=== PATIENT | male | born 1970 | race Caucasian/White ===

== ENCOUNTER 2019-04-14 16:08 | Outpatient (CLI) | payer BC | END 2019-04-14 16:09 | disposition home or self-care (01) | LOC: CTENTCT 16:08 | PROVIDERS: ATTEND Otolaryngology Plastic Surgery within the Head & Neck | DX: J32.9 Chronic sinusitis, unspecified (principal) | CPT/HCPCS: 70486 ==

== ENCOUNTER 2020-02-01 21:01 | Emergency (ER) | payer BC ==
[2020-02-01 21:36] LABS: #Basophils 0.1 thou/uL (0.0-0.2); #Eosinphils 0.1 thou/uL (0.0-0.7); #Lymphocytes 1.5 thou/uL (1.20-3.40); #Monocytes 0.6 thou/uL (0.11-0.59); #Neutrophils 4.6 thou/uL (1.40-6.50); %Eosinophils 1.3 % (0.0-10.0); %Lymphocytes 21.5 % (21.0-51.0); %Monocytes 8.3 % (0.0-10.0); %Neutrophils 67.9 % (42.0-75.0); Hemoglobin 16.2 g/dL (14.0-18.0); Mean Corpuscular HGB CONC 34.3 g/dL (32.0-36.0); Mean Corpuscular Hemoglobin 33.3 pg (27.0-31.0); Mean Corpuscular Volume 97.1 fL (78.0-98.0); Mean Platelet Volume 7.6 fL (7.4-10.4); Platelet Count 299 thou/uL (130-400); Red Blood Cell (RBC) Count 4.88 mill/uL (4.70-6.10); White Blood Cell (WBC) Count 6.8 thou/uL (4.8-10.8)
[2020-02-01 21:58] LABS: ALT (SGPT) 39 U/L (8-55); AST (SGOT) 31 U/L (5-34); Albumin 4.5 g/dL (3.5-5.0); Alkaline Phosphatase 100 U/L (40-110); Anion Gap 14 mmol/L (10-20); BUN (Urea Nitrogen) 9 mg/dL (8.9-20.6); Bilirubin, Total 1.1 mg/dL (0.2-1.2); Calc. Creatinine Clearance 0 mL/min (70-130); Calcium 9.6 mg/dL (7.8-10.44); Carbon Dioxide 20 mmol/L (22-29); Chloride 102 mmol/L (98-107); Estimated GFR-MDRD Greater than 90; Globulin 3.3 g/dL (2.4-3.5); Glucose 135 mg/dL (70-105); Potassium 3.6 mmol/L (3.5-5.1); Protein, Total 7.8 g/dL (6.0-8.3); Sodium 132 mmol/L (136-145)
--- NOTE | 2020-02-01 23:19 | RAD ---
EXAM: CHEST ONE VIEW HISTORY: Chest pain. COMPARISON: None FINDINGS: The cardiac silhouette and pulmonary vasculature is within normal limits. The lungs are clear. The os seous structures are intact. IMPRESSION: No acute cardiopulmonary process.
[2020-02-01] MEDS ORDERED: Lorazepam 2 MG/ML VIAL ONE (23:36)
[2020-02-01] MEDS ORDERED: Ketorolac Tromethamine 30 MG/ML VIAL ONE (23:36)
== END 2020-02-01 23:57 | disposition home or self-care (01) ==
LOC: ERS 21:01
DX: R07.89 Other chest pain (principal); R51 Headache; R53.83 Other fatigue; F41.9 Anxiety disorder, unspecified; F32.9 Major depressive disorder, single episode, unspecified; Z87.891 Personal history of nicotine dependence; Z79.899 Other long term (current) drug therapy
CPT/HCPCS: 36415; 71045; 80053; 82550; 84484; 85025; 93005; 96361; 96374; 96375; J1885; J2060

== ENCOUNTER 2022-11-19 14:00 | Inpatient (IN) | payer BC ==
[2022-11-19 17:16] LABS: Hemoglobin 14.9 g/dL (13.5-17.5); Mean Corpuscular HGB CONC 34.2 g/dL (32.0-36.0); Mean Corpuscular Hemoglobin 32.1 pg (27.0-33.0); Mean Platelet Volume 10.5 fl (7.4-10.4); Platelet Count 284 10x3/uL (150-450); RBC Distribution Width 12.8 % (11.5-14.5); Red Blood Cell (RBC) Count 4.64 10x6/uL (4.32-5.72); White Blood Cell (WBC) Count 8.6 10x3/uL (3.5-10.5)
[2022-11-19 17:38] LABS: Anion Gap 17 mmol/L (10-20); BUN (Urea Nitrogen) 11 mg/dL (8.9-20.6); Calc. Creatinine Clearance 0 mL/min (70-130); Calcium 9.6 mg/dL (7.8-10.44); Carbon Dioxide 23 mmol/L (22-29); Chloride 103 mmol/L (98-107); Estimated GFR 108; Glucose 70 mg/dL (70-105); Potassium 4.1 mmol/L (3.5-5.1); Sodium 139 mmol/L (136-145)
[2022-11-20] MEDS ORDERED: Fentanyl 250 MCG/5 ML VIAL ONE (06:20)
[2022-11-20] MEDS ORDERED: Midazolam HCl 2 mg/2 ml Vial ONE ×2 (06:20→06:49)
[2022-11-20] MEDS ORDERED: Albumin 5% 500 ML ONE (06:34)
[2022-11-20] MEDS ORDERED: PHENYLEPHRINE-NS 100 MCG/ML 10 ML SYRINGE ONE ×2 (06:34→07:37)
[2022-11-20] MEDS ORDERED: Lidocaine 1% MPF 2 ML VIAL ONE (06:45)
[2022-11-20] MEDS ORDERED: Heparin 10,000 UNITS/1 ML VIAL 30,000 UNITS in Sodium Chloride 0.9% 1,000 ML FS SCH (07:00)
[2022-11-20] MEDS ORDERED: CEFAZOLIN 2 GM VIAL ONE (07:25)
[2022-11-20] MEDS ORDERED: Sodium Chloride 0.9% 100 ML ONE (07:25)
[2022-11-20] MEDS ORDERED: Papaverine 60 MG/2 ML VIAL ONE (07:37)
[2022-11-20] MEDS ORDERED: Heparin 30,000 units/30 ml VIAL ONE (07:37)
[2022-11-20] MEDS ORDERED: Aminocaproic Acid 5 GM/20 ML VIAL ONE (07:37)
[2022-11-20] MEDS ORDERED: Vecuronium 10 MG VIAL ONE (07:37)
[2022-11-20] MEDS ORDERED: Heparin 5,000 UNITS/ML VIAL ONE (07:37)
[2022-11-20] MEDS ORDERED: Labetalol HCl 100 MG/20 ML VIAL ONE (07:37)
[2022-11-20] MEDS ORDERED: Vancomycin 1 GM VIAL ONE (07:37)
[2022-11-20] MEDS ORDERED: PROPOFOL 200 MG/20 ML VIAL ONE (07:37)
[2022-11-20] MEDS ORDERED: Protamine Sulfate 250 MG/25 ML VIAL ONE (07:37)
[2022-11-20] MEDS ORDERED: Calcium Chloride 1 GM/10 ML Abboject SYRINGE ONE (07:37)
[2022-11-20] MEDS ORDERED: Thrombin 5000 UNITS/5 ML VIAL ONE (07:37)
[2022-11-20] MEDS ORDERED: Bisacodyl 5 MG TAB PO PRN (10:08)
[2022-11-20] MEDS ORDERED: Post-Op Insulin Drip Protocol IVPB ONE (10:08)
[2022-11-20] MEDS ORDERED: Hetastarch 6% 500 ML 500 ML IVPB PRN (10:08)
[2022-11-20] MEDS ORDERED: DOPamine 400 MG/D5W 250 ML 250 ML IVPB PRN (10:08)
[2022-11-20] MEDS ORDERED: Potassium Chloride 20 MEQ/100 ML PREMIX BAG IVPB PRN (10:08)
[2022-11-20] MEDS ORDERED: hydrALAZINE 20 MG/ML VIAL SLOW IVP PRN (10:08)
[2022-11-20] MEDS ORDERED: Bisacodyl 10 MG SUPP PR PRN (10:08)
[2022-11-20] MEDS ORDERED: Ipratropium/Albuterol 3 ML NEB NEB PRN (10:08)
[2022-11-20] MEDS ORDERED: fentaNYL 50 mcg/mL 1 mL Vial SLOW IVP PRN (10:08)
[2022-11-20] MEDS ORDERED: Guaifenesin DM 100-10/5 ML UDCUP PO PRN (10:08)
[2022-11-20] MEDS ORDERED: NOREPINEPHRINE 8 MG/250 ML-D5W 250 ML IVPB PRN (10:08)
[2022-11-20] MEDS ORDERED: niCARdipine 25 MG in Sodium Chloride 0.9% 250 ML 250 ML IVPB PRN (10:08)
[2022-11-20] MEDS ORDERED: Promethazine HCl 25 MG/ML VIAL IM PRN (10:08)
[2022-11-20] MEDS ORDERED: Mag-Al 1200 mg/1200 mg/30 ML UDCUP PO PRN (10:08)
[2022-11-20] MEDS ORDERED: Nitroglycerin 50 MG/250 ML BOT 250 ML IVPB PRN (10:08)
[2022-11-20] MEDS ORDERED: Acetaminophen 325 MG TAB PO PRN (10:08)
[2022-11-20] MEDS ORDERED: Ondansetron PF 4 MG/2 ML Vial IVP PRN (10:08)
[2022-11-20] MEDS ORDERED: Morphine 4 MG/ML VIAL ONE ×2 (10:17→19:22)
[2022-11-20 10:27] LABS: Actual Bicarbonate (HCO3a) 19.4 mEq/L (22-28); Base Excess (BEa) -4.4 mEq/L (-2.0 to +3.0); Calcium, Ionized (arterial) 1.11 mmol/L (1.12-1.30); Carboxyhemoglobin (COHb) 1.2 gm% (0.0-3.0); Hematocrit-ABG 39 % (42.0-52.0); Hemoglobin (Hb) 13.4 g/dL (14.0-18.0); O2 Tension (PaO2), arterial 168.6 mmHg (80.0-100.0); Potassium - ABG Lab 3.77 mmol/L (3.70-5.30)
[2022-11-20 10:28] LABS: Puncture Site Arterial Line
[2022-11-20] MEDS: Lactated Ringer's 1,000 ML IV SCH ×2 (10:39→23:47)
[2022-11-20 10:40] LABS: #Eosinphils 0.1 thou/uL (0.0-0.7); #Monocytes 0.8 thou/uL (0.11-0.59); #Neutrophils 9.2 thou/uL (1.40-6.50); %Basophils 0.3 % (0.0-1.0); %Eosinophils 0.9 % (0.0-10.0); %Lymphocytes 12.1 % (21.0-51.0); %Monocytes 6.6 % (0.0-10.0); Hemoglobin 12.5 g/dL (14.0-18.0); Mean Corpuscular HGB CONC 32.8 g/dL (32.0-36.0); Mean Corpuscular Hemoglobin 32.1 pg (27.0-31.0); Mean Corpuscular Volume 97.7 fl (78.0-98.0); Platelet Count 235 10x3/uL (130-400); White Blood Cell (WBC) Count 11.6 10x3/uL (4.8-10.8)
[2022-11-20 10:55] LABS: INR-International Normal Ratio 1.2; Prothrombin Time 15.2 sec (12.0-14.7)
[2022-11-20 10:56] LABS: PTT 32.8 sec (22.9-36.1)
[2022-11-20 11:04] LABS: Anion Gap 14 mmol/L (10-20); BUN (Urea Nitrogen) 11 mg/dL (8.9-20.6); Calc. Creatinine Clearance 124 mL/min (70-130); Calcium 8.8 mg/dL (7.8-10.44); Carbon Dioxide 20 mmol/L (22-29); Chloride 108 mmol/L (98-107); Estimated GFR 109; Glucose 109 mg/dL (70-105); Potassium 3.8 mmol/L (3.5-5.1); Sodium 138 mmol/L (136-145)
[2022-11-20 11:05] VITALS: BMI 24.9
[2022-11-20] MEDS ORDERED: Insulin Regular 300 UNITS/3 ML VIAL SC PRN (11:15)
[2022-11-20] MEDS ORDERED: Dextrose 5% in Water 1,000 ML IV PRN (11:15)
[2022-11-20] MEDS ORDERED: HUMULIN R 100 UNITS in Sodium Chloride 0.9% 100 ML IVPB SCH (11:15)
[2022-11-20] MEDS ORDERED: Dextrose 50% Abboject 50 ML SYRINGE SLOW IVP PRN (11:15)
[2022-11-20] MEDS: Ketorolac Tromethamine 30 MG/ML VIAL IVP SCH ×3 (11:41→23:22)
[2022-11-20] MEDS: Morphine 2 MG/ML VIAL SLOW IVP PRN ×2 (12:06→12:59)
[2022-11-20] MEDS: CEFAZOLIN 2 GM in Sodium Chloride 0.9% 100 ML IVPB SCH ×2 (14:51→23:46)
[2022-11-20 15:25] LABS: Base Excess (BEa) -7.8 mEq/L (-2.0 to +3.0); Calcium, Ionized (arterial) 1.11 mmol/L (1.12-1.30); Carboxyhemoglobin (COHb) 0.4 gm% (0.0-3.0); Hematocrit-ABG 36 % (42.0-52.0); Hemoglobin (Hb) 12.3 g/dL (14.0-18.0); O2 Tension (PaO2), arterial 165.4 mmHg (80.0-100.0); Potassium - ABG Lab 3.69 mmol/L (3.70-5.30); pH, Arterial 7.456 (7.35-7.45)
[2022-11-20 16:00] LABS: Hemoglobin 11.4 g/dL (14.0-18.0)
[2022-11-20 16:17] LABS: Potassium 3.7 mmol/L (3.5-5.1)
[2022-11-20] MEDS: fentaNYL 50 mcg/mL 1 mL Vial SLOW IVP PRN ×2 (16:26→21:18)
[2022-11-20 17:12] LABS: ALV-art Gradient 94.425 mmHg (0-20); CO2 Tension 20.3 mmHg (35.0-45.0); Puncture Site Arterial Line
[2022-11-20] MEDS: Famotidine/PF 20 mg/2ml Vial SLOW IVP SCH (20:39)
[2022-11-20] MEDS: HYDROcodone/Acetaminophen 5/325 mg Tablet PO PRN (20:40)
[2022-11-20] MEDS: Zolpidem Tartrate 5 MG TAB PO SCH (20:41)
[2022-11-20] MEDS: Rosuvastatin 20 MG TAB PO SCH (20:42)
[2022-11-20] MEDS ORDERED: Rosuvastatin 5 MG TAB PO SCH (21:00)
[2022-11-20] MEDS: ALPRAZolam 0.25 MG TAB PO PRN (23:23)
[2022-11-21 05:04] LABS: #Monocytes 0.7 thou/uL (0.11-0.59); #Neutrophils 5.7 thou/uL (1.40-6.50); %Basophils 0.3 % (0.0-1.0); %Eosinophils 0.3 % (0.0-10.0); %Lymphocytes 17.3 % (21.0-51.0); %Monocytes 9.3 % (0.0-10.0); %Neutrophils 72.5 % (42.0-75.0); Hemoglobin 10.7 g/dL (14.0-18.0); Mean Corpuscular HGB CONC 31.7 g/dL (32.0-36.0); Mean Corpuscular Hemoglobin 31.8 pg (27.0-31.0); Mean Corpuscular Volume 100.3 fl (78.0-98.0); Platelet Count 208 10x3/uL (130-400); RBC Distribution Width 13.4 % (11.5-14.5); Red Blood Cell (RBC) Count 3.37 mill/uL (4.70-6.10); White Blood Cell (WBC) Count 7.9 10x3/uL (4.8-10.8)
[2022-11-21 05:26] LABS: Anion Gap 12 mmol/L (10-20); BUN (Urea Nitrogen) 7 mg/dL (8.9-20.6); Calc. Creatinine Clearance 120 mL/min (70-130); Calcium 8.3 mg/dL (7.8-10.44); Carbon Dioxide 23 mmol/L (22-29); Chloride 104 mmol/L (98-107); Estimated GFR 108; Glucose 103 mg/dL (70-105); Potassium 3.6 mmol/L (3.5-5.1); Sodium 135 mmol/L (136-145)
[2022-11-21] MEDS: Ketorolac Tromethamine 30 MG/ML VIAL IVP SCH ×4 (05:40→23:43)
[2022-11-21] MEDS: CEFAZOLIN 2 GM in Sodium Chloride 0.9% 100 ML IVPB SCH (07:59)
[2022-11-21] MEDS: Lactated Ringer's 1,000 ML IV SCH (08:00)
[2022-11-21] MEDS: HYDROcodone/Acetaminophen 5/325 mg Tablet PO PRN ×2 (08:01→15:41)
[2022-11-21] MEDS ORDERED: Aspirin Chewable 81 MG TAB PO SCH (09:00)
[2022-11-21] MEDS: Magnesium 2 GM/50 ML(in water) 2 GM in Premix Bag 1 BAG IVPB SCH (09:16)
[2022-11-21] MEDS: Polyethylene Glycol 3350 17 GM Packet PO SCH ×2 (09:16→09:33)
[2022-11-21] MEDS: Metoprolol Tartrate 25 MG TAB PO SCH ×2 (09:17→20:28)
[2022-11-21] MEDS: Famotidine/PF 20 mg/2ml Vial SLOW IVP SCH (09:17)
[2022-11-21] MEDS ORDERED: Insulin Glargine 30 UNITS/0.3 ML VIAL SC PRN (11:11)
[2022-11-21] MEDS ORDERED: Nitroglycerin 0.4 MG TAB (25 Tab Bottle) SL PRN (11:40)
[2022-11-21] MEDS ORDERED: Mineral Oil ENEMA PR PRN (11:40)
[2022-11-21] MEDS: fentaNYL 50 mcg/mL 1 mL Vial SLOW IVP PRN (16:40)
[2022-11-21] MEDS: Zolpidem Tartrate 5 MG TAB PO SCH (20:28)
[2022-11-21] MEDS: Rosuvastatin 20 MG TAB PO SCH (20:28)
[2022-11-22 04:11] LABS: #Eosinphils 0.1 thou/uL (0.0-0.7); #Neutrophils 6.8 thou/uL (1.40-6.50); %Basophils 0.3 % (0.0-1.0); %Eosinophils 0.8 % (0.0-10.0); %Lymphocytes 14.7 % (21.0-51.0); %Monocytes 10.9 % (0.0-10.0); %Neutrophils 73.1 % (42.0-75.0); Hemoglobin 11.2 g/dL (14.0-18.0); Mean Corpuscular HGB CONC 32.4 g/dL (32.0-36.0); Mean Corpuscular Volume 98.9 fl (78.0-98.0); Mean Platelet Volume 10.2 fL (7.4-10.4); Platelet Count 219 10x3/uL (130-400); RBC Distribution Width 13.2 % (11.5-14.5); White Blood Cell (WBC) Count 9.3 10x3/uL (4.8-10.8)
[2022-11-22] MEDS: fentaNYL 50 mcg/mL 1 mL Vial SLOW IVP PRN (04:16)
[2022-11-22 04:35] LABS: Anion Gap 10 mmol/L (10-20); BUN (Urea Nitrogen) 9 mg/dL (8.9-20.6); Calc. Creatinine Clearance 111 mL/min (70-130); Calcium 8.7 mg/dL (7.8-10.44); Carbon Dioxide 26 mmol/L (22-29); Chloride 105 mmol/L (98-107); Estimated GFR 106; Glucose 107 mg/dL (70-105); Potassium 4.4 mmol/L (3.5-5.1); Sodium 137 mmol/L (136-145)
[2022-11-22] MEDS: HYDROcodone/Acetaminophen 5/325 mg Tablet PO PRN ×3 (06:24→16:40)
[2022-11-22] MEDS: Ketorolac Tromethamine 30 MG/ML VIAL IVP SCH ×4 (06:25→23:03)
[2022-11-22] MEDS: Metoprolol Tartrate 25 MG TAB PO SCH ×2 (08:29→20:59)
[2022-11-22] MEDS: Aspirin 81 mg Enteric Coated Tablet PO SCH (08:29)
[2022-11-22] MEDS: Magnesium 2 GM/50 ML(in water) 2 GM in Premix Bag 1 BAG IVPB SCH (08:29)
[2022-11-22] MEDS: Polyethylene Glycol 3350 17 GM Packet PO SCH (08:31)
[2022-11-22 09:49] LABS: Actual Bicarbonate (HCO3a) 24.2 mEq/L (22-28); Analyzer IN Cardio OR; Base Excess (BEa) -0.1 mEq/L (-2.0 to +3.0); CO2 Tension 38.2 mmHg (35.0-45.0); Calcium, Ionized (arterial) 1.09 mmol/L (1.12-1.30); Carboxyhemoglobin (COHb) 1.5 gm% (0.0-3.0); Hematocrit-ABG 41 % (42.0-52.0); Hemoglobin (Hb) 14.1 g/dL (14.0-18.0); O2 Tension (PaO2), arterial 372.5 mmHg (80.0-100.0); Potassium - ABG Lab 3.47 mmol/L (3.70-5.30); pH, Arterial 7.419 (7.35-7.45)
[2022-11-22 10:02] LABS: Puncture Site Arterial Line
[2022-11-22 10:02] LABS: Actual Bicarbonate (HCO3a) 21.2 mEq/L (22-28); Analyzer IN Cardio OR; Base Excess (BEa) -3.9 mEq/L (-2.0 to +3.0); CO2 Tension 38.4 mmHg (35.0-45.0); Calcium, Ionized (arterial) 1.14 mmol/L (1.12-1.30); Carboxyhemoglobin (COHb) 0.8 gm% (0.0-3.0); Hematocrit-ABG 37 % (42.0-52.0); Hemoglobin (Hb) 12.5 g/dL (14.0-18.0); O2 Tension (PaO2), arterial 424.5 mmHg (80.0-100.0); Potassium - ABG Lab 3.52 mmol/L (3.70-5.30); pH, Arterial 7.359 (7.35-7.45)
[2022-11-22 10:03] LABS: Puncture Site Arterial Line
[2022-11-22] MEDS: ALPRAZolam 0.25 MG TAB PO PRN (17:02)
[2022-11-22] MEDS: Zolpidem Tartrate 5 MG TAB PO SCH (20:58)
[2022-11-22] MEDS: Rosuvastatin 20 MG TAB PO SCH (20:59)
[2022-11-23] MEDS: Ketorolac Tromethamine 30 MG/ML VIAL IVP SCH ×2 (05:44→12:21)
[2022-11-23] MEDS: HYDROcodone/Acetaminophen 5/325 mg Tablet PO PRN ×2 (05:47→12:20)
[2022-11-23] MEDS: Metoprolol Tartrate 25 MG TAB PO SCH (07:59)
[2022-11-23] MEDS: Aspirin 81 mg Enteric Coated Tablet PO SCH (07:59)
[2022-11-23] MEDS: Polyethylene Glycol 3350 17 GM Packet PO SCH (08:00)
[2022-11-23 11:53] VITALS: BP 111/63; TEMP 98.6
== END 2022-11-23 14:43 | disposition home or self-care (01) | DRG 236 ==
LOC: SURG A 11-20 06:00 → CCU 11-20 09:37 → 2NO 11-21 13:45
PROVIDERS: ADMIT Thoracic Surgery (Cardiothoracic Vascular Surgery); ATTEND Thoracic Surgery (Cardiothoracic Vascular Surgery)
PROC: 02100Z9 Bypass Coronary Artery, One Artery from Left Internal Mammary, Open Approach (ICD-10-PCS; principal; 2022-11-20)
PROC: 02L70ZK Occlusion of Left Atrial Appendage, Open Approach (ICD-10-PCS; 2022-11-20)
DX: I25.118 Atherosclerotic heart disease of native coronary artery with other forms of angina pectoris (principal); K21.9 Gastro-esophageal reflux disease without esophagitis; E78.5 Hyperlipidemia, unspecified; F41.9 Anxiety disorder, unspecified; Z79.899 Other long term (current) drug therapy
CPT/HCPCS: 36415; 36416; 36430; 71045; 80048; 82805; 85025; 85027; 85610; 85730; 86850; 86900; 86901; 93005; 93010; 93798; 94002; 97139; C1713; C1751; C1776; J1642; J1644; J1815; J1885; J2250; J2270; J2272; J2440; J2704; J2720; J3010; J3370; J3475; J3480; J3490; J7120; P9045; S0017; S0028

== ENCOUNTER 2024-08-20 08:54 | Emergency (ER) | payer BC ==
[2024-08-20] MEDS ORDERED: Acetaminophen 500 MG TAB ONE (12:03)
[2024-08-20 13:05] LABS: #Basophils Less than 0.03 10x3/uL (0.0-0.2); %Basophils 0.2 % (0.0-1.0); %Eosinophils 2.2 % (0.0-10.0); %Lymphocytes 25.5 % (21.0-51.0); %Monocytes 9.9 % (0.0-10.0); %Neutrophils 61.6 % (42.0-75.0); Hematocrit 42.1 % (42.0-52.0); Hemoglobin 13.9 g/dL (14.0-18.0); Mean Corpuscular Hemoglobin 31.8 pg (27.0-31.0); Mean Corpuscular Volume 96.3 fL (78.0-98.0); Mean Platelet Volume 9.2 fL (7.4-10.4); Platelet Count 331 10x3/uL (130-400); RBC Distribution Width 13.2 % (11.5-14.5); Red Blood Cell (RBC) Count 4.37 mill/uL (4.70-6.10)
[2024-08-20 13:39] LABS: ALT (SGPT) 29 U/L (Less than 45); AST (SGOT) 40 U/L (11-34); Albumin 3.8 g/dL (3.1-4.5); Alkaline Phosphatase 109 U/L (40-110); Anion Gap 14 mmol/L (10-20); BUN (Urea Nitrogen) 9 mg/dL (8.4-25.7); Bilirubin, Total 0.8 mg/dL (0.3-1.2); CK (CPK) 107 U/L (30-200); Calc. Creatinine Clearance 0 mL/min (70-130); Calcium 9.5 mg/dL (7.8-10.44); Carbon Dioxide 26 mmol/L (22-29); Chloride 101 mmol/L (98-107); Estimated GFR 112; Globulin 3.8 g/dL (2.4-3.5); Glucose 86 mg/dL (70-105); Potassium 4.2 mmol/L (3.5-5.1); Protein, Total 7.6 g/dL (6.0-8.3); Sodium 137 mmol/L (136-145)
== END 2024-08-20 17:22 | disposition home or self-care (01) ==
LOC: ERS 08:54
DX: S70.11XA Contusion of right thigh, initial encounter (principal); Z87.891 Personal history of nicotine dependence; W55.22XA Struck by cow, initial encounter
CPT/HCPCS: 36415; 80053; 82550; 85025